=== PATIENT | female | born 1950 | race Caucasian/White ===

== ENCOUNTER 2019-05-30 07:31 | Outpatient (RCR) | payer MEDICARE, BC | END 2019-06-15 14:04 | LOC: OPPGERO 07:31 | DX: F33.1 Major depressive disorder, recurrent, moderate (principal); F41.1 Generalized anxiety disorder; F17.200 Nicotine dependence, unspecified, uncomplicated; K57.90 Diverticulosis of intestine, part unspecified, without perforation or abscess without bleeding; Z79.899 Other long term (current) drug therapy ==

== ENCOUNTER 2019-06-18 07:49 | Outpatient (RCR) | payer MEDICARE, BC | END 2019-07-13 14:25 | LOC: OPPGERO 07:49 | DX: F32.1 Major depressive disorder, single episode, moderate (principal); F41.1 Generalized anxiety disorder; K57.90 Diverticulosis of intestine, part unspecified, without perforation or abscess without bleeding; M85.80 Other specified disorders of bone density and structure, unspecified site; F17.210 Nicotine dependence, cigarettes, uncomplicated; Z63.4 Disappearance and death of family member ==

== ENCOUNTER 2019-08-15 07:55 | Outpatient (RCR) | payer MEDICARE, BC | END 2019-09-13 15:56 | disposition still patient (30) | LOC: OPPGERO 07:55 | DX: F33.1 Major depressive disorder, recurrent, moderate (principal); F41.1 Generalized anxiety disorder; F17.210 Nicotine dependence, cigarettes, uncomplicated; M85.80 Other specified disorders of bone density and structure, unspecified site; K57.90 Diverticulosis of intestine, part unspecified, without perforation or abscess without bleeding; T74.11XA Adult physical abuse, confirmed, initial encounter; Z63.32 Other absence of family member; Z63.0 Problems in relationship with spouse or partner; Z79.899 Other long term (current) drug therapy ==

== ENCOUNTER 2019-09-14 08:16 | Outpatient (RCR) | payer MEDICARE, BC | END 2019-10-12 15:06 | disposition still patient (30) | LOC: OPPGERO 08:16 | DX: F33.1 Major depressive disorder, recurrent, moderate (principal); F41.1 Generalized anxiety disorder; T74.31XA Adult psychological abuse, confirmed, initial encounter; F17.210 Nicotine dependence, cigarettes, uncomplicated; K57.90 Diverticulosis of intestine, part unspecified, without perforation or abscess without bleeding; M76.32 Iliotibial band syndrome, left leg; M85.80 Other specified disorders of bone density and structure, unspecified site; F10.20 Alcohol dependence, uncomplicated; Z63.0 Problems in relationship with spouse or partner; Z63.32 Other absence of family member; Z79.899 Other long term (current) drug therapy ==

== ENCOUNTER 2019-10-15 09:18 | Outpatient (RCR) | payer MEDICARE, BC | END 2019-11-13 16:07 | disposition still patient (30) | LOC: OPPGERO 09:18 | DX: F33.1 Major depressive disorder, recurrent, moderate (principal); F41.1 Generalized anxiety disorder; F17.210 Nicotine dependence, cigarettes, uncomplicated; M85.80 Other specified disorders of bone density and structure, unspecified site; K57.90 Diverticulosis of intestine, part unspecified, without perforation or abscess without bleeding; M76.32 Iliotibial band syndrome, left leg; T74.11XA Adult physical abuse, confirmed, initial encounter; G57.11 Meralgia paresthetica, right lower limb; Z63.0 Problems in relationship with spouse or partner; Z63.4 Disappearance and death of family member; Z79.899 Other long term (current) drug therapy ==

== ENCOUNTER 2020-08-08 16:22 | Emergency (ER) | payer MEDICARE, BC ==
[2020-08-08] MEDS ORDERED: POTASSIUM CHLO20 ME3 PO (16:58)
[2020-08-08] MEDS ORDERED: VENLAFAXINE HYD75 MG PO (16:59)
[2020-08-08] MEDS ORDERED: FUROSEMIDE40 MG PO (16:59)
[2020-08-08] MEDS ORDERED: ALPRAZOLAM0.5 MG PO (16:59)
[2020-08-08] MEDS ORDERED: AMIODARONE200 MG PO (16:59)
[2020-08-08] MEDS ORDERED: ELIQUIS5 MG PO (17:01)
[2020-08-08 18:14] LABS: HEMATOCRIT 34.3 % (37.0-47.0); HEMOGLOBIN 10.8 g/dL (12.5-16.0); LYMPH# 1.6 (1.50-4.00); MEAN CELL VOLUME 91 fl (78-100); MEAN CORPUSCULAR HEMOGLOBIN 29 pg (27-31); MEAN CORPUSCULAR HGB CONC 32 g/dL (33-37); MONO # 0.7 (0.20-0.80); NEU # 4.3 (1.40-6.50); PLATELET COUNT 179 K/mm3 (130-400); RED BLOOD COUNT 3.76 M/mm3 (4.10-5.30); RED CELL DISTRIBUTION WIDTH 14.4 % (11.5-14.5); WHITE BLOOD COUNT 6.6 K/mm3 (4.8-10.8)
[2020-08-08 18:20] LABS: POTASSIUM 4.1 mmol/L (3.5-5.1)
[2020-08-08 18:21] LABS: CALCIUM 9.3 mg/dL (8.3-10.5)
[2020-08-08 18:52] VITALS: BP 123/64
== END 2020-08-08 18:55 | disposition home or self-care (01) ==
LOC: ED 16:22
PROVIDERS: Family Medicine
DX: I48.91 Unspecified atrial fibrillation (principal); F41.9 Anxiety disorder, unspecified; Z95.0 Presence of cardiac pacemaker; Z79.01 Long term (current) use of anticoagulants; Z87.891 Personal history of nicotine dependence

== ENCOUNTER 2020-12-16 04:44 | Outpatient (RCR) | payer MEDICARE, BC ==
[~2020-12-16 04:44] MED LIST: ALPRAZOLAM0.5 MG PO; AMIODARONE200 MG PO; ELIQUIS5 MG PO; FUROSEMIDE40 MG PO; POTASSIUM CHLO20 ME3 PO; VENLAFAXINE HYD75 MG PO
== END 2021-01-13 15:45 | disposition home or self-care (01) ==
LOC: OPPGERO 04:44
DX: F33.1 Major depressive disorder, recurrent, moderate (principal); F41.1 Generalized anxiety disorder; F41.0 Panic disorder [episodic paroxysmal anxiety]; I48.91 Unspecified atrial fibrillation; K29.70 Gastritis, unspecified, without bleeding; I50.810 Right heart failure, unspecified; Z95.0 Presence of cardiac pacemaker; Z98.890 Other specified postprocedural states; Z63.4 Disappearance and death of family member; F17.210 Nicotine dependence, cigarettes, uncomplicated

== ENCOUNTER 2021-01-14 15:30 | Outpatient (RCR) | payer MEDICARE, BC | END 2021-02-12 13:45 | disposition home or self-care (01) | LOC: OPPGERO 15:30 | DX: F33.1 Major depressive disorder, recurrent, moderate (principal); F41.1 Generalized anxiety disorder; M85.80 Other specified disorders of bone density and structure, unspecified site; K57.90 Diverticulosis of intestine, part unspecified, without perforation or abscess without bleeding; I50.9 Heart failure, unspecified; I48.91 Unspecified atrial fibrillation; F41.8 Other specified anxiety disorders; I25.10 Atherosclerotic heart disease of native coronary artery without angina pectoris; I44.7 Left bundle-branch block, unspecified; F17.210 Nicotine dependence, cigarettes, uncomplicated; Z95.0 Presence of cardiac pacemaker; Z87.59 Personal history of other complications of pregnancy, childbirth and the puerperium; Z63.4 Disappearance and death of family member ==

== ENCOUNTER 2021-02-13 08:28 | Outpatient (RCR) | payer MEDICARE, BC | END 2021-03-15 17:58 | disposition home or self-care (01) | LOC: OPPGERO 08:28 | DX: F33.1 Major depressive disorder, recurrent, moderate (principal); I31.4 Cardiac tamponade; I25.10 Atherosclerotic heart disease of native coronary artery without angina pectoris; I48.91 Unspecified atrial fibrillation; F41.1 Generalized anxiety disorder; Z95.0 Presence of cardiac pacemaker; Z98.890 Other specified postprocedural states; Z63.4 Disappearance and death of family member; Z83.3 Family history of diabetes mellitus ==

== ENCOUNTER 2021-03-16 09:20 | Outpatient (RCR) | payer MEDICARE, BC | END 2021-04-14 16:40 | LOC: OPPGERO 09:20 | DX: F32.9 Major depressive disorder, single episode, unspecified (principal); F41.9 Anxiety disorder, unspecified ==

== ENCOUNTER 2021-04-15 15:38 | Outpatient (RCR) | payer MEDICARE, BC | END 2021-05-14 12:36 | disposition home or self-care (01) | LOC: OPPGERO 15:38 | DX: F41.1 Generalized anxiety disorder (principal); F33.1 Major depressive disorder, recurrent, moderate; K62.1 Rectal polyp; I44.7 Left bundle-branch block, unspecified; K57.30 Diverticulosis of large intestine without perforation or abscess without bleeding; I48.91 Unspecified atrial fibrillation; I25.10 Atherosclerotic heart disease of native coronary artery without angina pectoris; K29.70 Gastritis, unspecified, without bleeding; Z95.0 Presence of cardiac pacemaker; Z98.890 Other specified postprocedural states ==

== ENCOUNTER → 2022-03-19 | Outpatient (CLI) | payer MEDICARE, BC | LOC: VAS 14:05 → RAD 14:30 | DX: R60.0 Localized edema (principal); M25.562 Pain in left knee ==

== ENCOUNTER 2022-07-14 10:50 | Outpatient (RCR) | payer MEDICARE, BC | END 2022-08-13 | disposition home or self-care (01) | LOC: PT | DX: M25.562 Pain in left knee (principal) ==